=== PATIENT | female | born 1955 | race Caucasian/White ===

== ENCOUNTER → 2016-06-25 | Outpatient (CLI) | payer BC ==
--- NOTE | 2016-06-25 18:26 | XCELERA REPORT ---
[address] [address] Transthoracic Echocardiogram Report Name: THONG MONTILLA Age: 60 yrs Gender: Female : 1955 Patient Status: Outpatient Patient Location: Study Date: 06/25/2016 09:19 AM Height: 64 in Weight: 182 lb BSA: 1.9 m2 Procedure: A complete two-dimensional transthoracic echocardiogram was performed (2D, M-mode, spectral and color flow Doppler). The study was technically adequate with some images being suboptimal in quality. Reason For Study: ASC AORTIC ANEURYSM Ordering Physician: STEPHANIA JOSEPH PA-C Performed By: Lisandra Powers Interpretation Summary Best Measurements of aorta by Echocardiogram: Aortic annulus 2.4 cm Aortic Sinus 3.6 cm. Aorta sino-tubular junction 2.8 cm Ascending aorta: 3.8X4.0 cm in systole. Measurements seem mildly dilated at Ascending aorta. The left ventricular ejection fraction is normal. Doppler measurements suggest normal left ventricular diastolic function There is normal left ventricular wall thickness. The left ventricle is grossly normal size. No regional wall motion abnormalities noted. The right ventricular systolic function is normal. The right atrium is normal in size The left atrial size is normal. There is no mitral valve stenosis. There is a trace to mild amount of mitral regurgitation There is no aortic valve stenosis There is a trace amount of aortic regurgitation There is a trace or physiologic amount of tricuspid regurgitation Tricuspid regurgitation jet envelope not well defined to measure RV systolic pressure accurately. There is no pericardial effusion. MMode/2D Measurements \T\ Calculations RVDd: 2.5 cm LVIDd: 5.1 cm FS: 40.3 % Ao root diam: 3.7 cm IVSd: 1.00 cm LVIDs: 3.1 cm EDV(Teich): 126.6 ml LVPWd: 0.99 cm ESV(Teich): 37.1 ml Ao root area: 10.7 cm2 EF(Teich): 70.7 % LA dimension: 3.5 cm LVOT diam: 2.3 cm LVOT area: 4.1 cm2 Doppler Measurements \T\ Calculations MV E max concepcion: MV P1/2t max concepcion: Ao V2 max: LV V1 max P.2 cm/sec 93.2 cm/sec 122.9 cm/sec 3.8 mmHg MV A max concepcion: MV P1/2t: 47.3 msec Ao max PG: LV V1 max: 41.8 cm/sec MVA(P1/2t): 4.7 cm2 6.0 mmHg 98.0 cm/sec MV E/A: 2.2 MV dec slope: NIC(V,D): 3.3 cm2 577.8 cm/sec2 PA V2 max: 54.9 cm/sec PA max P.2 mmHg Left Ventricle The left ventricle is grossly normal size. There is normal left ventricular wall thickness. The left ventricular ejection fraction is normal. Doppler measurements suggest normal left ventricular diastolic function. No regional wall motion abnormalities noted. Right Ventricle The right ventricle is normal in size, thickness and function. There is normal right ventricular wall thickness. The right ventricular systolic function is normal. Atria The right atrium is normal in size. The left atrial size is normal. Interarterial septum not well visualized and not well dopplered. Cannot comment on ASD/PFO presence. Mitral Valve The mitral valve is grossly normal. There is no mitral valve stenosis. There is a trace to mild amount of mitral regurgitation. Aortic Valve The aortic valve is grossly normal. There is no aortic valve stenosis. There is a trace amount of aortic regurgitation. Tricuspid Valve The tricuspid valve is not well visualized, but is grossly normal. There is no tricuspid stenosis. There is a trace or physiologic amount of tricuspid regurgitation. Tricuspid regurgitation jet envelope not well defined to measure RV systolic pressure accurately. Pulmonic Valve The pulmonic valve is not well visualized. Great Vessels Best Measurements of aorta by Echocardiogram: Aortic annulus 2.4 cm Aortic Sinus 3.6 cm. Aorta sino -tubular junction 2.8 cm Ascending aorta: 3.8X4.0 cm in systole. The inferior vena cava appeared normal and decreased > 50% with respiration (RAP 5-10 mmHg). Effusions There is no pericardial effusion. : STEPHANIA JOSEPH PA-C > Shilpi Kraft
== END ==
LOC: SP 08:58
PROVIDERS: ATTEND Physician Assistant Medical
DX: I71.9 Aortic aneurysm of unspecified site, without rupture (principal)
CPT/HCPCS: 93306